=== PATIENT | female | born 2000 | race Caucasian/White ===

== ENCOUNTER 2018-04-02 10:40 | Emergency (ER) | payer OTHER ==
[2018-04-02 10:47] VITALS: BP 109/65; PULSE 76; TEMP 98; BMI 21.0
--- NOTE | 2018-04-02 11:18 | PDOC ---
History of Present Illness - General Chief Complaint: Back Pain Stated Complaint: BACK PAIN Time Seen by Provider: 04/02/18 11:12 - History of Present Illness Initial Comments: 18-year-old healthy female without comorbidities presents for evaluation of lower back pain with right leg radiculopathy 3 days. She had no precipitating traumatic event. No loss of bowel or bladder function or saddle paresthesia. She has no other associated symptoms. 04/02/18 11:16 Past History - Past Medical History Allergies/Adverse Reactions: Allergies Allergy/AdvReac Type Severity Reaction Status Date / Time No Known Allergies Allergy Verified 04/02/18 10:47 Home Medications: Ambulatory Orders Cyclobenzaprine HCl [Flexeril 10 mg] 10 mg PO HS PRN #10 tablet 04/02/18 Methylprednisolone [Medrol Dose Franco] 4 mg PO ASDIR #21 tablet 04/02/18 COPD: No - Suicide/Smoking/Psychosocial Hx Smoking History: Never smoked Review of Systems - Review of Systems Musculoskeletal: Yes: See HPI, Back Pain All Other Systems: Reviewed and Negative *Physical Exam - Vital Signs Last Vital Signs Temp Pulse Resp BP Pulse Ox 98 F 76 18 109/65 99 04/02/18 10:45 04/02/18 10:45 04/02/18 10:45 04/02/18 10:45 04/02/18 10:45 - Physical Exam Comments: Lumbar spine skin color and temperature are normal range of motion is slightly decreased. She has mild right-sided paralumbar musculature spasm. With associated tenderness. No CVA tenderness. She has 5 out of 5 strength in bilateral lower extremities without gross sensorimotor deficits. She has a positive straight leg raise test on the right negative on the left. She's neurovascularly intact. Thighs and calves are soft and nontender. 04/02/18 11:17 Medical Decision Making - Medical Decision Making Lumbar radiculopathy which I will treat with a shot of Toradol and send her home on a Medrol Dosepak with Flexeril and spine surgery follow-up. Require do not I will get a beta hCG 04/02/18 11:17 *DC/Admit/Observation/Transfer Diagnosis at time of Disposition: Lumbar radicular syndrome - Discharge Dispostion Disposition: HOME Condition at time of disposition: Improved Decision to Admit order: No - Prescriptions Prescriptions: Cyclobenzaprine HCl [Flexeril 10 mg] 10 mg PO HS PRN #10 tablet PRN Reason: Muscle Spasms Methylprednisolone [Medrol Dose Franco] 4 mg PO ASDIR #21 tablet - Referrals Referrals: Jean Paul Modi MD [Staff Physician] - - Patient Instructions Printed Discharge Instructions: Lumbar Radiculopathy, DI for Lumbar Radiculopathy Additional Instructions: Abbasi dolor de espalda fue tratado hoy con un peña antiinflamatorio. Le he recetado un Medrol Dosepak, que es un esteroide peña en la dosis que disminuir cada da. Tambin le he dado lidia receta para un relajante muscular que debe tomarse antes de acostarse, ya que le gustavo sueo. Regrese a la radha de emergencias si rita sntomas empeoran o no se resuelven. l debe hacer un seguimiento de la ciruga de la columna vertebral para lidia evaluacin adicional y opciones de tratamiento dentro de los prximos 2-3 ruiz. Print Language: YORUBA - Post Discharge Activity
[2018-04-02] MEDS ORDERED: KETOROLAC TROMETHAMINE 60 MG/2 ML VIAL IM ONE (11:43)
[2018-04-02] MEDS ORDERED: KETOROLAC TROMETHAMINE 60 MG/2 ML VIAL ONE (11:59)
== END 2018-04-02 12:11 | disposition home or self-care (01) ==
LOC: JERFT 10:40
PROC: 3E0233Z Introduction of Anti-inflammatory into Muscle, Percutaneous Approach (ICD-10-PCS; principal; 2018-04-02)
DX: M54.16 Radiculopathy, lumbar region (principal)
CPT/HCPCS: 84703; 96372; 99281-25

== ENCOUNTER 2019-01-31 13:28 | Emergency (ER) | payer SELFPAY ==
[2019-01-31 13:34] VITALS: BP 127/91; PULSE 83; TEMP 97.7; BMI 22.8
--- NOTE | 2019-01-31 13:34 | PDOC ---
Rapid Medical Evaluation Time Seen by Provider: 01/31/19 13:29 Medical Evaluation: Allergies Allergy/AdvReac Type Severity Reaction Status Date / Time No Known Allergies Allergy Verified 05/05/18 20:04 01/31/19 13:31 I have briefly examined the patient She presents with two weeks of chest pain and abdominal pain. States that she last threw up last night. Denies diarrhea, constipation Exam: TTP LUQ, NAD Orders: Labs, urine, IV insert Pt to proceed to the ER for further evaluation Discharge Disposition - Diagnosis Abdominal pain Qualifiers: Abdominal location: generalized Qualified Code(s): R10.84 - Generalized abdominal pain - Referrals - Patient Instructions - Post Discharge Activity
[2019-01-31] MEDS ORDERED: SODIUM CHLORIDE 0.9% 500 ML INFUS.BAG IV ONE (13:43)
--- NOTE | 2019-01-31 13:46 | PDOC ---
History of Present Illness - General Chief Complaint: Pain Stated Complaint: ABD PAIN/ VOMITING Time Seen by Provider: 01/31/19 13:29 - History of Present Illness Initial Comments: 01/31/19 13:45 The patient is a 18 year old female with no reported significant PMH who presents to our ED this afternoon c/o a two week h/o worsening abdominal pain. Pain is intermittent, L sided, sharp, 6/10 and lasts 5-10 minutes. Endorses some hematuria and three episodes of NBNB emesis over the last 2 days prompting her visit to the ED this morning. Tolerating PO intake and last BM was yesterday and was normal. No fevers/chills. LMP was early January. Sexually active with one partner and sometimes uses condoms. 10 point ROS is negative including no chest pain/shortness of breath/cough/sore throat/visual changes/numbness/tingling. NKDA Surgical: none reported PMD: none - will refer to IM resident clinic. As per EMR, patient evaluated in our ED in 11/2017 for RLQ abdominal pain. TVUS and CTAP showed no concerning findings and patient discharged home with supportive care. Past History - Past Medical History Allergies/Adverse Reactions: Allergies Allergy/AdvReac Type Severity Reaction Status Date / Time No Known Allergies Allergy Verified 01/31/19 13:32 Home Medications: Ambulatory Orders Doxycycline Hyclate 100 mg PO BID #14 tablet 01/31/19 COPD: No - Suicide/Smoking/Psychosocial Hx Smoking History: Never smoked Review of Systems - Review of Systems Constitutional: No: Chills, Fever HEENTM: No: Recent change in vision Respiratory: No: Cough, Shortness of Breath Cardiac (ROS): No: Chest Pain, Lightheadedness, Palpitations, Syncope ABD/GI: Yes: Nausea, Vomiting. No: Constipated, Diarrhea *Physical Exam - Vital Signs Last Vital Signs Temp Pulse Resp BP Pulse Ox 97.7 F 83 18 127/91 98 01/31/19 13:32 01/31/19 13:32 01/31/19 13:32 01/31/19 13:32 01/31/19 13:32 - Physical Exam Comments: 01/31/19 14:32 VS in triage reviewed Awake, alert, non-toxic Abdomen: soft, LUQ and LLQ (LUQ >LLQ) TTP w/o peritoneal signs, (+) bowel sounds CV: S1, S2, no M/R/G Respiratory: CLTA B/L, no wheeze/crackles Extremity: 2+ DP pulse, no edema 01/31/19 15:33 Pelvic: physiologic discharge with CMT on bimanual exam, mildly erythematous cervix ED Treatment Course - LABORATORY CBC & Chemistry Diagram: 01/31/19 14:30 01/31/19 14:30 Medical Decision Making - Medical Decision Making 01/31/19 14:26 18 year old female with sharp L sided abdominal pain + hematuria. VS unremarkable. - Broad differential including r/o ovarian torsion, r/o ectopic also consider PID, cystitis, gastritis, gastroenteritis, pancreatitis (less likely) - Will obtain urine , CBC/CMP, Coags, pelvic exam and TVUS - Patient orally consents to HIV testing (nurse Zaira Sandra witness) 01/31/19 15:54 Hb stable UA clean, Urine Cx pending Bedside pelvic shows likely physiologic discharge mildly erythematous/friable cervic, CMT on bimanual Prophylactic G/C treatment 01/31/19 17:07 HIV negative TVUS shows no Torsion 01/31/19 17:20 Patient reassessed @ bedside Reports epigastric pain on attending HPI, s/p Maalox, symptoms mildly improved; h/o multiple evaluations for non-specific abdominal pain w/o any acute medically emergent findings, patient needs primary care + evaluation by gastroenteorology Will discharge with GI follow-up, s/p prophylactic PID treatment, referral to resident clinic to establish primary care Clinical Impression: Abdominal pain 2/2 to gastritis vs. Pelvic Pain 2/2 to PID I discussed the physical exam findings, ancillary test results and final diagnoses with the patient. I answered all of the patient's questions. The patient was satisfied with the care received and felt comfortable with the discharge plan and treatment plan. The patient will return to the Emergency Department with any new, persistent or worsening symptoms. *DC/Admit/Observation/Transfer Diagnosis at time of Disposition: Abdominal pain Qualifiers: Abdominal location: generalized Qualified Code(s): R10.84 - Generalized abdominal pain - Discharge Dispostion Disposition: HOME Condition at time of disposition: Good Decision to Admit order: No - Prescriptions Prescriptions: Doxycycline Hyclate 100 mg PO BID #14 tablet - Referrals Referrals: Margarita Lopez MD [Staff Physician] - Reno Hebert MD [Staff Physician] - - Patient Instructions Printed Discharge Instructions: DI for Abdominal Pain-Adult Additional Instructions: Fuiste evaluado hoy por tu dolor abdominal. Abbasi ultrasonido no mostr resultados preocupantes. Abbasi prueba de VIH fue negativa. Noy pruebas para otra infeccin de transmisin sexual estn pendientes, kita le estamos administrando antibiticos para el tratamiento en kleber de que las pruebas claudia positivas. Hemos enviado un antibitico a abbasi farmacia. Por favor, tome todo el curso de antibiticos segn lo prescrito. Por favor kimmy lidia andres de seguimiento con un mdico de atencin primaria. Hemos proporcionado lidia referencia o puede llamar a abbasi compaa de seguros para obtener lidia lista de mdicos. Ian kimmy lidia andres para lidia evaluacin con un gastroenterlogo (un mdico especialista en estomacal) para evaluar abbasi dolor de estmago. Ian puede llamar a abbasi seguro para obtener lidia lista de mdicos. Regrese al Departamento de Emergencias para cualquier sntoma nuevo / que empeora / relacionado. - Post Discharge Activity
[2019-01-31] MEDS ORDERED: ACETAMINOPHEN 1000 MG/100 ML VIAL (NON FORMULARY) IVPB ONE (14:31)
[2019-01-31 15:06] LABS: BASO % 0.3 % (0-2.0); EOS % 26.8 % (0-4.5); HEMATOCRIT 42.2 % (32.4-45.2); HEMOGLOBIN 13.7 GM/dL (10.7-15.3); LYMPH % 23.6 % (8-40); MCH 29.3 pg (25.7-33.7); MCHC 32.5 g/dl (32.0-36.0); MEAN CELL VOLUME 90.2 fl (80-96); MEAN PLT VOLUME 11.4 fl (7.5-11.1); MONO % 4.9 % (3.8-10.2); NEUT % 44.4 % (42.8-82.8); PLATELET COUNT 168 K/MM3 (134-434); RBC 4.68 M/mm3 (3.60-5.2); RDW 14.2 % (11.6-15.6); WHITE BLOOD COUNT 6.4 K/mm3 (4.0-10.0)
[2019-01-31 15:08] LABS: URINE APPEARANCE CLOUDY; URINE BILIRUBIN NEGATIVE (NEGATIVE); URINE COLOR YELLOW; URINE GLUCOSE (UA) NEGATIVE (NEGATIVE); URINE KETONE TRACE (NEGATIVE); URINE LEUK ESTERASE NEGATIVE (NEGATIVE); URINE NITRITE NEGATIVE (NEGATIVE); URINE PROTEIN NEGATIVE (NEGATIVE); URINE UROBILINOGEN 0.2 mg/dL (0.2-1.0)
[2019-01-31 15:10] LABS: HCG,QUALITATIVE URINE Negative
[2019-01-31 15:41] LABS: ALBUMIN 4.4 g/dl (3.4-5.0); BILIRUBIN,TOTAL 0.5 mg/dL (0.2-1); CALCIUM 9.3 mg/dL (8.5-10.1); CREATININE 0.6 mg/dL (0.55-1.3); POTASSIUM 4.1 mmol/L (3.5-5.1); TOT PROT 7.5 g/dl (6.4-8.2)
[2019-01-31] MEDS ORDERED: MAG HYDROX/AL HYDROX/SIMETH 30 ML UNIT-DOSE CUP PO ONE (16:59)
[2019-01-31] MEDS ORDERED: RANITIDINE HCL 150 MG TABLET (FP) PO ONE (16:59)
--- NOTE | 2019-01-31 16:59 | PDOC ---
Attending Attestation - Resident Resident Name: Xiomara Wyatt - ED Attending Attestation I have performed the following: I have examined & evaluated the patient, The case was reviewed & discussed with the resident, I agree w/resident's findings & plan - HPI HPI: 01/31/19 16:56 18-year-old female with no significant past medical history or surgical history presents with epigastric/left upper quadrant discomfort that has been constant for 2 weeks, occasionally sharp exacerbations after eating. Positive associated heartburn, no nausea/vomiting/melena/diarrhea/constipation. No fevers or chills , no urinary complaints, no DRAMATIC TEACHER complaints. Tried taking Pepto-Bismol without relief, presents for evaluation. No excessive NSAID use, no excessive alcohol use, no history of endoscopy or recurrent GI complaints. Nonsmoker. - Physicial Exam PE: 01/31/19 16:57 Vital signs stable Well-appearing seated in chair No jaundice or pallor Moist mucosa Heart is regular, lungs are clear Abdomen is soft/nondistended, tender without guarding or rebound in the epigastric/left upper quadrant region, no CVA tenderness. Pelvic per resident. - Medical Decision Making 01/31/19 16:58 18-year-old female with 2 weeks of epigastric/left upper quadrant discomfort, no peritoneal findings on exam. Presentation could be most consistent with dyspepsia, particularly given the heartburn complaints. Rule out or DRAMATIC TEACHER etiology, rule out pancreatitis or biliary etiology. Labs including lipase Urinalysis Transvaginal ultrasound Trial of antacid, reassess
[2019-01-31] MEDS ORDERED: MAG HYDROX/AL HYDROX/SIMETH 30 ML UNIT-DOSE CUP ONE (17:05)
[2019-01-31] MEDS ORDERED: RANITIDINE HCL 150 MG TABLET (FP) ONE (17:05)
[2019-01-31] MEDS ORDERED: cefTRIAXone SODIUM 1 GM VIAL ONE (17:28)
[2019-02-01 04:34] LABS: ANISOCYTOSIS 2+; MACROCYTOSIS 0; OVALOCYTE 1+; PLATELET ESTIMATE NORMAL
== END 2019-01-31 18:34 | disposition home or self-care (01) ==
LOC: JER 13:28
PROC: 3E033NZ Introduction of Analgesics, Hypnotics, Sedatives into Peripheral Vein, Percutaneous Approach (ICD-10-PCS; principal; 2019-01-31)
PROC: 3E02329 Introduction of Other Anti-infective into Muscle, Percutaneous Approach (ICD-10-PCS; 2019-01-31)
PROC: 3E0337Z Introduction of Electrolytic and Water Balance Substance into Peripheral Vein, Percutaneous Approach (ICD-10-PCS; 2019-01-31)
DX: R10.84 Generalized abdominal pain (principal)
CPT/HCPCS: 36415; 76830-TC; 80053; 81003; 83605; 83690; 84703; 85025; 87389; 87491; 87591; 99281-25; J0131

== ENCOUNTER 2022-09-03 00:41 | Emergency (ER) | payer SELFPAY ==
[2022-09-03 00:53] VITALS: BP 109/70; PULSE 83; RESP 20; TEMP 98.1; BMI 25.6
[2022-09-03] MEDS ORDERED: ACETAMINOPHEN 325 MG TABLET (FP) PO ONE (02:58)
[2022-09-03] MEDS ORDERED: ONDANSETRON 4 MG TABLET PO ONE (02:58)
[2022-09-03] MEDS ORDERED: ACETAMINOPHEN 325 MG TABLET (FP) ONE (03:13)
[2022-09-03] MEDS ORDERED: ONDANSETRON *ODT* 4 MG TABLET ONE (03:13)
[2022-09-03 03:26] LABS: EPI CELLS >36 /uL (0-25.1); HYALINE CASTS 1 /uL (0-3.1); URINE APPEARANCE CLOUDY; URINE BACTERIA 637 /uL (0-1359); URINE BILIRUBIN NEGATIVE (NEGATIVE); URINE COLOR YELLOW; URINE GLUCOSE (UA) NEGATIVE (NEGATIVE); URINE KETONE 1+ (NEGATIVE); URINE LEUK ESTERASE 1+ (NEGATIVE); URINE NITRITE NEGATIVE (NEGATIVE); URINE PROTEIN TRACE (NEGATIVE); URINE RBC 10 /uL (0-23.9); URINE UROBILINOGEN 0.2 mg/dL (0.2-1.0); URINE WBC 182 /uL (0-25.8)
[2022-09-03] MEDS ORDERED: CEPHALEXIN MONOHYDRATE 500 MG CAPSULE (UD) PO ONE (04:25)
[2022-09-03] MEDS ORDERED: SODIUM CHLORIDE 0.9% 500 ML INFUS.BAG IV ONE (04:27)
[2022-09-03] MEDS ORDERED: CEPHALEXIN MONOHYDRATE 500 MG CAPSULE (UD) ONE (04:47)
== END 2022-09-03 05:45 | disposition home or self-care (01) ==
LOC: JER 00:41
DX: N30.00 Acute cystitis without hematuria (principal); R51.9 Headache, unspecified
CPT/HCPCS: 0241U-QW; 81003; 84703; 87086; 87186; 99284-25